=== PATIENT | female | born 1975 | race African-American/Black ===

== ENCOUNTER → 2024-08-28 | Outpatient (CLI) | payer MEDICARE ==
[~2024-08-28] MED LIST: BUSP15TA47 PO; CHOL125C5 PO; CYMB1CAP5 PO; GABA-1172 PO; HYDR50TA70 PO; ONDA-84 PO; OXYC10TA12 PO; PREG50CA PO; TOPA1TAB PO; TRAZ-252 PO; VENL1TAB35 PO
== END ==
LOC: M WHC 13:22
PROVIDERS: ATTEND Specialist
DX: Z85.3 Personal history of malignant neoplasm of breast (principal); Z53.9 Procedure and treatment not carried out, unspecified reason

== ENCOUNTER → 2024-09-25 | Outpatient (CLI) | payer MEDICARE | LOC: M WHC 11:21 | PROVIDERS: ATTEND Otolaryngology | DX: Z13.820 Encounter for screening for osteoporosis (principal); Z79.811 Long term (current) use of aromatase inhibitors ==

== ENCOUNTER → 2024-10-02 | Outpatient (CLI) | payer MEDICARE ==
[~2024-10-02] VITALS: Ht 175.3 cm; Wt 80.4 kg
[~2024-10-02] MED LIST changes: +DULO1CAP6 PO; +QUET1TAB17 PO
[2024-10-02 14:45] VITALS: BP 143/93; O2SAT 99
== END ==
LOC: M PAL 14:22
PROVIDERS: ATTEND Nurse Practitioner Adult Health
DX: C50.912 Malignant neoplasm of unspecified site of left female breast (principal); I97.2 Postmastectomy lymphedema syndrome; F43.10 Post-traumatic stress disorder, unspecified; G89.3 Neoplasm related pain (acute) (chronic); M89.9 Disorder of bone, unspecified; G62.9 Polyneuropathy, unspecified; Z51.5 Encounter for palliative care; Z79.891 Long term (current) use of opiate analgesic; Z79.899 Other long term (current) drug therapy; Z88.0 Allergy status to penicillin; Z88.1 Allergy status to other antibiotic agents; Z90.13 Acquired absence of bilateral breasts and nipples; Z92.3 Personal history of irradiation; Z92.29 Personal history of other drug therapy; Z99.89 Dependence on other enabling machines and devices

== ENCOUNTER → 2024-11-13 | Outpatient (CLI) | payer MEDICARE ==
[~2024-11-13] VITALS: Ht 175.3 cm; Wt 80.3 kg
[2024-11-13 13:53] VITALS: BP 142/92; O2SAT 98
== END ==
LOC: M PAL 13:36
PROVIDERS: ATTEND Family Medicine
DX: Z51.5 Encounter for palliative care (principal); C50.912 Malignant neoplasm of unspecified site of left female breast; G89.29 Other chronic pain; I89.0 Lymphedema, not elsewhere classified; M79.2 Neuralgia and neuritis, unspecified; F43.10 Post-traumatic stress disorder, unspecified; Z90.12 Acquired absence of left breast and nipple; Z92.21 Personal history of antineoplastic chemotherapy; Z79.891 Long term (current) use of opiate analgesic; Z79.899 Other long term (current) drug therapy; Z88.0 Allergy status to penicillin; Z88.1 Allergy status to other antibiotic agents

== ENCOUNTER → 2025-04-06 | Outpatient (CLI) | payer MEDICARE ==
[~2025-04-06] VITALS: Ht 175.3 cm; Wt 81.1 kg
[~2025-04-06] MED LIST changes: -PREG50CA PO; +PREG50CA87 PO
[2025-04-06 10:15] VITALS: BP 127/83; O2SAT 95
== END ==
LOC: M PAL 10:07
PROVIDERS: ATTEND Physician Assistant
DX: Z51.5 Encounter for palliative care (principal); Z85.3 Personal history of malignant neoplasm of breast; Z90.12 Acquired absence of left breast and nipple; G64 Other disorders of peripheral nervous system; I89.0 Lymphedema, not elsewhere classified; Z79.891 Long term (current) use of opiate analgesic; Z91.85 Personal history of military service; F43.10 Post-traumatic stress disorder, unspecified; Z88.0 Allergy status to penicillin; Z88.1 Allergy status to other antibiotic agents; Z79.899 Other long term (current) drug therapy

== ENCOUNTER → 2025-08-04 | Outpatient (CLI) | payer MEDICARE ==
[~2025-08-04] VITALS: Ht 175.3 cm; Wt 83.0 kg
[~2025-08-04] MED LIST changes: +PREG-35 PO
[2025-08-04 11:01] VITALS: BP 137/90; O2SAT 99
== END ==
LOC: M PAL 10:15
PROVIDERS: ATTEND Physician Assistant
DX: Z51.5 Encounter for palliative care (principal); Z85.3 Personal history of malignant neoplasm of breast; G89.4 Chronic pain syndrome; Z79.891 Long term (current) use of opiate analgesic; Z88.1 Allergy status to other antibiotic agents; Z88.0 Allergy status to penicillin; Z79.899 Other long term (current) drug therapy